=== PATIENT | female | born 1995 | race Caucasian/White ===

== ENCOUNTER 2016-09-09 14:23 | Emergency (ER) | payer BC, OTHER ==
[2016-09-09] MEDS ORDERED: SODIUM CHLORIDE 0.9% 1,000 ML ONE ×2 (15:45→17:27)
[2016-09-09 16:07] LABS: ABSOLUTE NEUTROPHIL COUNT 7.4 K/mm3 (1.8-7.7); BASO # 0.1 K/mm3 (0.0-0.2); BASO % 0.5 % (0.2-1.0); EOS # 0.2 (0.0-0.5); EOS % 1.5 % (0.9-2.9); HEMOGLOBIN 13.2 gm/l (12.0-16.0); IMM NEUT% 0.3 % (0-1); LYMPH # 2.1 (1.0-4.8); LYMPH % 20.2 % (15-45); MEAN CELL VOLUME 96.1 fl (81.0-99.0); MEAN CORPUSCULAR HEMOGLOBIN 32.5 pg (27.0-31.0); MEAN CORPUSCULAR HGB CONC 33.8 g/dl (33.0-37.0); MEAN PLATELET VOLUME 9.3 fl (7.4-10.4); MONO # 0.7 (0.0-0.8); MONO % 6.8 % (4-12); NEUT % 70.7 % (43-75); PLATELET COUNT 260 K/mm3 (130-400); RED CELL DISTRIBUTION WIDTH 12.6 % (11.5-14.5)
[2016-09-09 16:18] LABS: ALB/GLOB RATIO 1.8 (>1.0); ALBUMIN 4.2 gm/dL (3.5-5.7); ALT/SGPT 17 U/L (7-52); BLOOD UREA NITROGEN 11 mg/dL (7-25); BUN/CREATININE RATIO 16 (6-20); CALCIUM 9.4 mg/dL (8.6-10.3)
[2016-09-09] MEDS ORDERED: ACETAMINOPHEN 500 MG TABLET ONE (18:24)
[2016-09-09 18:29] LABS: URINE BILIRUBIN NEGATIVE (NEGATIVE); URINE BLOOD NEGATIVE (NEGATIVE); URINE GLUCOSE (UA) NEGATIVE (NEGATIVE); URINE LEUKOCYTE ESTERASE NEGATIVE (NEGATIVE); URINE NITRITE NEGATIVE (NEGATIVE); URINE PROTEIN NEGATIVE (NEGATIVE); URINE UROBILINOGEN NORMAL (0-1 mg/dl)
[2016-09-09 18:34] LABS: URINE APPEARANCE CLEAR; URINE COLOR YELLOW
[2016-09-09 18:35] LABS: HCG,QUALITATIVE URINE NEGATIVE
--- NOTE | 2016-09-09 19:30 | CT ---
Name: JM [email or web address] Exam: CT head without contrast Comparison: None Clinical history: Syncope Technique: Helical CT was performed through the head. Angled axial reconstructions were obtained. Sagittal and coronal reconstructions were obtained as well. No contrast was given. An automated dose reduction technique was used to minimize patient radiation dose. Findings: There is no shift of the midline structures. Ventricles are of normal size and configuration. There is no mass, mass effect or hemorrhage. Cisterns are uneffaced. Posterior fossa is unremarkable. Visualized paranasal sinuses mastoid air cells are clear. There is no fracture. Impression: Negative unenhanced CT of the head Note: The above report was uploaded to [facility]'s electronic medical records system at 1926 hours.
[2016-09-09] MEDS ORDERED: HYDROCODONE/ACETAMINOPHEN 5/325MG TABLET ONE (19:39)
[2016-09-09] MEDS ORDERED: ONDANSETRON 4 MG ODT TAB ONE (19:39)
== END 2016-09-09 20:11 | disposition home or self-care (01) ==
LOC: ED 14:23
DX: R55 Syncope and collapse (principal); R51 Headache; S01.111A Laceration without foreign body of right eyelid and periocular area, initial encounter; W01.198A Fall on same level from slipping, tripping and stumbling with subsequent striking against other object, initial encounter; Y93.E1 Activity, personal bathing and showering; Y92.002 Bathroom of unspecified non-institutional (private) residence as the place of occurrence of the external cause